=== PATIENT | female | born 1940 | race Caucasian/White ===

== ENCOUNTER 2021-01-15 23:25 | Inpatient (IN) | payer MEDICARE, OTHER ==
[~2021-01-15] VITALS: Ht 167.6 cm; Wt 58.5 kg
--- NOTE | 2021-01-15 23:40 | NUR ---
PATIENT TO ER BED 2 C/O RIGHT HIP PAIN AND TAIL BONE PAIN. PATIENT STATES THAT SHE IS UNABLE TO WALK, BUT IS ABLE TO BEAR WEIGHT ON LEFT LEG AND RIGHT LEG. PATIENT STATES THAT SHE HAD FALLEN ON HER BUTTOCKS. DENIES HITTING HEAD. AAOX4. DENIES SOB. BREATHING EVENLY AND UNLABORED ON ROOM AIR. CONNECTED TO THE MONITOR.
--- NOTE | 2021-01-16 00:18 | NUR ---
xray at bedside
[2021-01-16] MEDS ORDERED: HYDROCODONE/APAP 10/325MG TABLET ONE ×2 (01:01→05:57)
--- NOTE | 2021-01-16 01:01 | NUR ---
CALLED SHERMAN FOR X RAY READ
[2021-01-16] MEDS ORDERED: HYDROCODONE/APAP 10/325MG TABLET PO ONE ×2 (01:30→06:30)
--- NOTE | 2021-01-16 03:01 | NUR ---
PATIENT TO CT
[2021-01-16 03:48] LABS: BASOPHILS # (AUTO) 0.1 /CMM (0.0-0.2); BASOPHILS % (AUTO) 0.5 % (0.0-2.0); EOSINOPHILS % (AUTO) 1.2 % (0.0-6.0); HEMATOCRIT 37 % (33-45); HEMOGLOBIN 12.7 g/dL (11.5-14.8); LYMPHOCYTES # (AUTO) 1.1 /CMM (0.8-4.8); LYMPHOCYTES % (AUTO) 10.8 % (20.0-44.0); MEAN CORPUSCULAR HGB CONC 34 g/dl (31.0-36.0); MEAN CORPUSCULAR VOLUME 89 fL (82-100); MONOCYTES # (AUTO) 0.8 /CMM (0.1-1.30); MONOCYTES % (AUTO) 7.3 % (2.0-12.0); NEUTROPHILS # (AUTO) 8.3 /CMM (1.8-8.9); NEUTROPHILS % (AUTO) 80.2 % (43.0-81.0); PLATELET COUNT (AUTO) 251 /CMM (150-450); WHITE BLOOD COUNT (AUTO) 10.4 K/uL (4.3-11.0)
[2021-01-16 04:20] LABS: CALCIUM, SERUM 9.1 mg/dL (8.5-10.1); POTASSIUM 3.9 mmol/L (3.5-5.1)
[2021-01-16 04:25] LABS: ALBUMIN 3.8 g/dL (3.4-5.0); BILIRUBIN,DIRECT 0.1 mg/dL (0.0-0.2); BILIRUBIN,TOTAL 0.4 mg/dL (0.2-1.0); TOTAL PROTEIN, SERUM 7.3 g/dL (6.4-8.2)
--- NOTE | 2021-01-16 05:09 | NUR ---
ORTHO INFORMATION SECURITY DIRECTOR PAGED PER REQUEST
--- NOTE | 2021-01-16 05:11 | NUR ---
DR. SALINAS SPEAKING WITH JEWEL BOX HAZARDOUS SUBSTANCES SCIENTIST Addendum: 01/16/21 at 0600 by PEG DONITA LOUISE HAZARDOUS SUBSTANCES SCIENTIST JEWEL
--- NOTE | 2021-01-16 05:21 | NUR ---
PATIENT IS SLEEPING. PATIENT AROUSABLE THROUG VERBAL STIMULI. BREATHING EVENLY AND UNLABORED ON ROOM AIR. CONNECTED TO THE MONITOR. SIDE RAILS ARE UP FOR SAFETY. BED'S HEIGHT IN THE LOWEST SETTING. CALL LIGHT IS WITHIN REACH. WILL CONTINUE TO MONITOR PATIENT CLOSELY.
--- NOTE | 2021-01-16 05:22 | NUR ---
DR. SALINAS SPEAKING WITH RAGINI NORIEGA REGARDING ADMISSION
--- NOTE | 2021-01-16 07:11 | NUR ---
COVID RESULT IS NEGATIVE.
[2021-01-16] MEDS ORDERED: HYDR-3980 PO (08:16)
[2021-01-16] MEDS ORDERED: INSU100V3 SQ (08:16)
[2021-01-16] MEDS ORDERED: GABA-532 PO (08:16)
[2021-01-16] MEDS ORDERED: DOCU-141 PO (08:16)
[2021-01-16] MEDS ORDERED: BLOO-668 IN (08:16)
[2021-01-16] MEDS ORDERED: MULT-24 PO (08:16)
[2021-01-16] MEDS ORDERED: SITA50TA PO (08:16)
[2021-01-16] MEDS ORDERED: ASPI-1420 PO (08:16)
--- NOTE | 2021-01-16 08:52 | NUR ---
JULIUSMoe AVELARS SISTER PHONE# [phone], SISTER IS REQUESTING TO TALK TO .
[2021-01-16] MEDS ORDERED: DEXTROSE 50%-WATER 50 ML DISP.SYRIN IV PRN (10:30)
[2021-01-16] MEDS ORDERED: ONDANSETRON HCL/PF 4 MG/2 ML VIAL IVP PRN (10:30)
[2021-01-16] MEDS ORDERED: IV D5/0.45 NACL 1,000 ML IV PRN (10:30)
--- NOTE | 2021-01-16 11:24 | NUR ---
REPORT GIVEN TO LIZZ ALEGRE FOR LEANDRO.
--- NOTE | 2021-01-16 11:32 | NUR ---
PATIENT TRANSFERRED TO ROOM 326 IN STABLE CONDITION.
--- NOTE | 2021-01-16 11:40 | NUR ---
RN NOTES PATIENT ARRIVED TO UNIT IN ROOM 326-2 VIA GURNEY, ACCOMPANIED BY ER NURSE. TRANSFERRED TO BED, BLANKET GIVEN, KEPT WARM AND COMFORTABLE.
--- NOTE | 2021-01-16 11:40 | NUR ---
MS RN NOTES PATIENT ARRIVED FROM ER VIA GURNEY ACCOMPANIED BY A NURSE. PATIENT TRANSFERRED TO BED. PATIENT IS ALERT AND ORIENTED X4. WITH NO SIGN OF RESPIRATORY DISTRESS WITH EVEN AND UNLABORED BREATHING. COMFORT MEASURES PROVIDED. ON NORMAL BODY ALIGNMENT. PATIENT COMPLAINED OF PAIN ON THE RIGHT HIP UPON TRANSFER. VITAL SIGNS FOLLOWS BP 154/68, HR 68, OXYGEN SATURATION OF 95-96%. PATIENT REFUSED BODY CHECK AND CHANGE OF CLOTHES. PROVIDED WITH CALM AND QUIET ENVIRONMENT. ENCOURAGED TO DO DEEP BREATHING EXERCISES. NOT IN DISTRESS. BED ON LOWEST POSITION AND LOCKED. SIDERAILS RAISED FOR SAFETY. NEEDS ATTENDED. CALL LIGHT WITHIN REACH AT ALL TIMES. WILL CONTINUE TO MONITOR PATIENT CLOSELY.
[2021-01-16] MEDS: BLOOD SUGAR DIAGNOSTIC 1 EACH STRIP IN SCH ×3 (12:00→23:45)
[2021-01-16] MEDS: GABAPENTIN 300 MG CAPSULE PO SCH ×2 (12:18→16:23)
--- NOTE | 2021-01-16 12:20 | NUR ---
RN NOTES PATIENT ASSISTED W/ VOIDING AT BED VIA AMILCAR, SIS ZAMUDIO AND MARCELLUS MOMIN AT BEDSIDE. ASKED IF SHE CAN BE CHANGED TO HOSPITAL GOWN, BUT PATIENT REFUSED AND INSISTED TO WEAR HER REGULAR CLOTHES. PATIENT ALSO REFUSED SKIN CHECK AT THIS TIME, STATING THAT SHE DOES NOT HAVE ANY OPEN WOUNDS. PATIENT VERBALIZES THAT SHE DOES NOT LIKE THIS HOSPITAL AND PREFERS TO GO TO [facility]. ASKED FOR NORCO AND GABAPENTIN, PROVIDED AT THIS TIME W/ SIP OF WATER. ALSO REFUSED ACCU-CHECK AT THIS TIME. EXPLAINED IMPORTANCE OF MONITORING BUT PATIENT INSISTED ON REFUSAL. WILL CONTINUE TO MONITOR.
--- NOTE | 2021-01-16 13:00 | NUR ---
SIS NOTES PATIENT WAS SEEN BY JEWEL MADERA NP, AND IVET BURKETT NP. NO SURGICAL INTERVENTION AT THIS TIME PER RAGINI PRASAD; PATIENT CURRENTLY NPO, INFORMED RAGINI COONEY IF PATIENT IS OKAY TO EAT AND SHE AGREED. Addendum: 01/16/21 at 1810 by ALEKSANDR PEREIRA RN CORRECTION: DONITA MADERA
--- NOTE | 2021-01-16 13:40 | NUR ---
pt refused xrays
[2021-01-16 15:56] VITALS: BP 152/76
[2021-01-16] MEDS: MORPHINE SULFATE INJ 2 MG/ML DISP.SYRIN IV PRN ×2 (16:30→20:42)
--- NOTE | 2021-01-16 17:10 | NUR ---
RN NOTES SPOKE W/ PATIENT'S SISTER JULIUS MARINELLI ([phone] OR [phone]), AND INFORMED ABOUT PATIENT'S CONDITION AND PLAN OF CARE. PER SISTER, SHE WOULD LIKE TO SPEAK W/ PATIENT'S HOSPITALIST AND/OR ORTHO MD FOLLOWING THE CASE IF POSSIBLE. PATIENT'S SISTER ALSO STATED THAT PATIENT HAS HAD ISSUES W/ NARCOTIC MEDICATION IN THE PAST SUCH NORCO; REASSURED SISTER THAT PATIENT DOES NOT HAVE ANY NORCO AT THIS TIME BUT HAS MORPHINE IV AND SISTER WAS OKAY WITH IT. SISTER LIVES IN [place] AND IS OKAY TO ACCEPT ANY PHONE CHARGE IF MAKING A CALL TO HER. WILL ENDORSE TO NEXT SHIFT.
--- NOTE | 2021-01-16 19:03 | NUR ---
MS RN CLOSING NOTE PATIENT ASLEEP ON BED, BUT EASILY AROUSABLE WITH CALL OR SOUND. PATIENT WITH NO APPARENT SIGNS OF PAIN OR DISTRESS. COMFORT MEASURES PROVIDED. PROVIDED WITH CALM AND QUIET ENVIRONMENT. PATIENT STILL REFUSED IV INSERTION AND DOES NOT WANT TO BE BOTHERED. BED MAINTAINED ON LOWEST POSITION AND LOCKED. CALL LIGHT AND BEDSIDE TABLE WITHIN REACH AT ALL TIMES. WILL ENDORSE TO NEXT SHIFT FOR CONTINUITY OF CARE.
--- NOTE | 2021-01-16 19:44 | NUR ---
MS RN NOTES PATIENT ASLEEP ON BED, BUT EASILY AROUSABLE WITH CALL OR SOUND. PATIENT WITH NO APPARENT SIGNS OF PAIN OR DISTRESS. COMFORT MEASURES PROVIDED. PROVIDED WITH CALM AND QUIET ENVIRONMENT. PATIENT STILL REFUSED IV INSERTION AND DOES NOT WANT TO BE BOTHERED. BED MAINTAINED ON LOWEST POSITION AND LOCKED. CALL LIGHT AND BEDSIDE TABLE WITHIN REACH AT ALL TIMES. WILL CONTINUE TO MONITOR.
--- NOTE | 2021-01-16 19:57 | NUR ---
MS RN NOTES CORRECTION PT HAS IV ACCESS ON THE RIGHT FOREARM BUT IS REFUSING IV FLUIDS WILL CONTINUE TO MONITOR,
[2021-01-16 20:00] VITALS: BP 145/69
--- NOTE | 2021-01-16 21:00 | NUR ---
MS RN NOTES PT IS REFUSING THE DVT PUMPS X3 RISK AND BENEFITS EXPLAINED X3 PT STATED " I HATE THIS HOSPITAL JUST GIVE ME THE MORPHINE" WILL PROVIDE PAIN MANAGEMENT MEDICATION. ATTEMPTED TO REPOSITION THE PT AND CHANGE LINEN PT REFUSED X3 WILL ATTEMPT LATER.
[2021-01-16] MEDS ORDERED: DOCUSATE SODIUM 100 MG CAPSULE PO SCH (22:00)
[2021-01-16] MEDS: INSULIN REGULAR, HUMAN 100 UNIT/ML 3 ML VIAL SQ PRN (23:48)
--- NOTE | 2021-01-16 23:49 | NUR ---
MS RN NOTES PT REFUSED INSULIN BLOOD SUGAR IS 131 PER SLIDING SCALE PT REQUIRES 2 UNITS OF INSULIN RISK AND BENEFITS EXPLAINED X3 PT REFUSED X3 STATED " ITS OKAY THAT'S LOW I DON'T NEED IT.. LET ME SLEEP" WILL CONTINUE TO MONITOR.
[2021-01-17] MEDS: MORPHINE SULFATE INJ 2 MG/ML DISP.SYRIN IV PRN ×2 (02:33→08:06)
--- NOTE | 2021-01-17 03:37 | NUR ---
MS RN NOTES PT IS REFUSING CARE FROM STATE DOESN'T WAN TO BE CHANGED OR REPOSITIONED. PT STATED " JUST GIVE ME MY MORPHINE AND LEAVE ME ALONE I DON'T WANT YOU TO CHANGE ME EVEN IF IM DIRTY JUST LEAVE IT!" RISK AND BENEFITS EXPLAINEDX3 REFUSED X3 WILL ATTEMPT TO TO OFFER LINEN AND BED BATH TO THE PT AGAIN LATER WILL CONTINUE TO MONITOR.
[2021-01-17] MEDS: INSULIN REGULAR, HUMAN 100 UNIT/ML 3 ML VIAL SQ PRN ×2 (05:51→12:06)
[2021-01-17] MEDS: BLOOD SUGAR DIAGNOSTIC 1 EACH STRIP IN SCH ×2 (06:06→12:04)
[2021-01-17 06:38] LABS: BASOPHILS # (AUTO) 0.1 /CMM (0.0-0.2); BASOPHILS % (AUTO) 0.6 % (0.0-2.0); HEMATOCRIT 30 % (33-45); HEMOGLOBIN 10.1 g/dL (11.5-14.8); LYMPHOCYTES # (AUTO) 1.1 /CMM (0.8-4.8); MEAN CORPUSCULAR HGB CONC 34 g/dl (31.0-36.0); MEAN CORPUSCULAR VOLUME 89 fL (82-100); MONOCYTES # (AUTO) 0.6 /CMM (0.1-1.30); MONOCYTES % (AUTO) 7.4 % (2.0-12.0); NEUTROPHILS # (AUTO) 6.1 /CMM (1.8-8.9); PLATELET COUNT (AUTO) 191 /CMM (150-450); RED BLOOD CELL COUNT(AUTO) 3.34 MIL/uL (4.0-5.2); WHITE BLOOD COUNT (AUTO) 8.2 K/uL (4.3-11.0)
[2021-01-17 07:08] LABS: CALCIUM, SERUM 8.5 mg/dL (8.5-10.1); CREATININE 0.7 mg/dL (0.6-1.3); MAGNESIUM 1.7 mg/dL (1.8-2.4); PHOSPHORUS 2.6 mg/dL (2.5-4.9); POTASSIUM 3.4 mmol/L (3.5-5.1)
--- NOTE | 2021-01-17 07:11 | NUR ---
MS RN NOTES PATIENT ASLEEP ON BED, BUT EASILY AROUSABLE WITH CALL OR SOUND. PATIENT WITH NO APPARENT SIGNS OF PAIN OR DISTRESS. COMFORT MEASURES PROVIDED. PROVIDED WITH CALM AND QUIET ENVIRONMENT. PATIENT AGREED TO PT CARE LINE WAS CHANGED PT WAS CLEANED. BED MAINTAINED ON LOWEST POSITION AND LOCKED. CALL LIGHT AND BEDSIDE TABLE WITHIN REACH AT ALL TIMES. WILL ENDORSE TO DAY SHIFT NURSE.
--- NOTE | 2021-01-17 07:25 | NUR ---
MS RN OPENING NOTE RECEIVED PATIENT IN BED. A/O X3-4. ON ROOM AIR, TOLERATING WELL. NO SOB NOTED. IN NO APPARENT DISTRESS. REPORTED PAIN 9/10 ON THE RIGHT HIP. IV ACCESS ON R FA #20 G, INTACT. SAFETY MEASURES MAINTAINED. BED IN LOWEST POSITION, BRAKES LOCKED. SIDE RAILS UP X2. CALL LIGHT WITHIN REACH. WILL CONTINUE PLAN OF CARE.
[2021-01-17] MEDS: GABAPENTIN 300 MG CAPSULE PO SCH ×3 (08:04→17:54)
--- NOTE | 2021-01-17 08:06 | NUR ---
MS RN NOTE PAIN 9/10 ON THE R HIP. MORPHINE 2MG/ML GIVEN. WILL CONTINUE TO MONITOR THROUGHOUT THE SHIFT.
[2021-01-17 08:14] VITALS: BP 141/71
[2021-01-17] MEDS ORDERED: LINAGLIPTIN 5 MG TABLET PO SCH (09:00)
[2021-01-17] MEDS ORDERED: SITAGLIPTIN PHOSPHATE 50 MG TABLET PO SCH (09:00)
[2021-01-17] MEDS ORDERED: PANTOPRAZOLE 40 MG VIAL IV SCH (09:00)
[2021-01-17] MEDS ORDERED: MULTIVITAMINS,THERAGRAN 1 UDTAB TABLET PO SCH (09:00)
[2021-01-17] MEDS: Magnesium 1GM/D5W 100ML PREMIX 100 ML IV SCH ×2 (10:32→11:58)
[2021-01-17] MEDS ORDERED: POTASSIUM CHLORIDE 20 MEQ TAB.PRT.SR PO SCH (11:30)
[2021-01-17] MEDS ORDERED: ENOXAPARIN SODIUM 40 MG/0.4 ML DISP.SYRIN SQ SCH (12:00)
[2021-01-17 16:00] VITALS: BP 124/47
--- NOTE | 2021-01-17 17:18 | NUR ---
MS RN NOTE GAVE REPORT TO DAREN Jordan LVN FROM [facility] ( [phone]) [phone]
--- NOTE | 2021-01-17 18:00 | NUR ---
MS RN NOTE PATIENT DISCHARGED. HEALTH TEACHING AND DISCHARGE INSTRUCTIONS GIVEN. PT VERBALIZED UNDERSTANDING. PICKED UP THE PT BY 3 EMT's VIA [facility]EWART. REMOVED IV LINE AND ID WRISTBAND. BELONGINGS HANDED TO THE EMT's. BP 124/47 P 90 RR 18 T 99.0 SA02 96%
== END 2021-01-17 18:00 | DRG 536 ==
LOC: ER 23:27 → TRANSITION 01-16 09:17 → MED 01-16 10:39
PROVIDERS: ADMIT Registered Nurse; ATTEND Nurse Practitioner Acute Care
DX: S32.511A Fracture of superior rim of right pubis, initial encounter for closed fracture (principal); S32.10XA Unspecified fracture of sacrum, initial encounter for closed fracture; W01.0XXA Fall on same level from slipping, tripping and stumbling without subsequent striking against object, initial encounter; Y92.039 Unspecified place in apartment as the place of occurrence of the external cause; E11.9 Type 2 diabetes mellitus without complications; D32.9 Benign neoplasm of meninges, unspecified; M43.10 Spondylolisthesis, site unspecified; S32.591A Other specified fracture of right pubis, initial encounter for closed fracture; Z88.8 Allergy status to other drugs, medicaments and biological substances; Z20.822 Contact with and (suspected) exposure to COVID-19; Z98.890 Other specified postprocedural states; M48.02 Spinal stenosis, cervical region; Z96.641 Presence of right artificial hip joint
CPT/HCPCS: 36415; 70450-TC; 71045-TC; 72125-TC; 73030-TC; 73060-TC; 73110; 73130-TC; 73502; 73700-TC; 80048-TC; 80061-TC; 80076-TC; 82962-TC; 83735-TC; 84100-TC; 85025-TC; 87081-TC; 97116-TC; 97530-TC; C9113; C9803; G0378; J1650; J2270; J3475; J3490